=== PATIENT | female | born 1960 | race Caucasian/White ===

== ENCOUNTER 2019-08-07 00:29 | Inpatient (IN) | payer OTHER ==
[~2019-08-07] VITALS: Ht 170.2 cm; Wt 47.7 kg
[~2019-08-07 00:29] MED LIST: LEXAPRO5 MG PO
[2019-08-07 00:41] VITALS: Ht 170.2 cm; Wt 47.7 kg
[2019-08-07] MEDS ORDERED: NATURE'S BLEND F1 MG PO (01:06)
[2019-08-07] MEDS ORDERED: LYRICA50 M1 PO ×2 (01:06→01:07)
[2019-08-07 01:56] LABS: CALCIUM 9.6 mg/dL (8.5-10.1); CARBON DIOXIDE 29.4 mmol/L (21-32); CHLORIDE SERUM 101 mmol/L (98-107); CREATININE SERUM 0.9 mg/dL (0.6-1.0); GFR1 > 60 mL/min; GLUCOSE SERUM 95 mg/dL (74-106); POTASSIUM SERUM 4.1 mmol/L (3.5-5.1); SODIUM SERUM 141 mmol/L (136-145)
[2019-08-07 02:13] LABS: ALBUMIN 4.5 g/dL (3.4-5.0); ALKALINE PHOSPHATASE 69 U/L (46-116); ALT/SGPT 27 U/L (14-59); AST/SGOT 14 U/L (15-37); BILIRUBIN TOTAL 2.59 mg/dL (0.20-1.00); TOTAL PROTEIN, SERUM 7.7 g/dL (6.4-8.2)
[2019-08-07 02:14] LABS: CK-MB 0.7 ng/mL (0-3.6)
[2019-08-07 02:15] LABS: FREE T4 1.38 ng/dL (0.76-1.46)
[2019-08-07 02:37] LABS: BASOPHIL % 0.2 % (0-2); PLATELET COUNT 307 x10^3mcL (130-400); RED CELL DISTRIBUTION WIDTH 12.8 % (11.5-14.5)
[2019-08-07 02:40] LABS: AMPHETAMINE QUAL UR NONE DETECTED (See below)
[2019-08-07 02:49] LABS: microscopic required? YES; urine erythrocyte 2+ (NEGATIVE)
[2019-08-07 13:27] VITALS: BP 128/83
[2019-08-07 14:38] VITALS: BP 124/88
[2019-08-07 17:11] VITALS: BP 125/89
[2019-08-07 21:03] VITALS: BP 140/87
[2019-08-08 06:22] LABS: CALCIUM 9.2 mg/dL (8.5-10.1); CARBON DIOXIDE 26.4 mmol/L (21-32); CHLORIDE SERUM 100 mmol/L (98-107); GFR1 > 60 mL/min; GLUCOSE SERUM 112 mg/dL (74-106); MAGNESIUM 2.2 mg/dL (1.8-2.4); PHOSPHOROUS 3.3 mg/dL (2.5-4.9); POTASSIUM SERUM 3.8 mmol/L (3.5-5.1); SODIUM SERUM 139 mmol/L (136-145)
[2019-08-08 06:35] LABS: BASOPHIL % 0.3 % (0-2); PLATELET COUNT 291 x10^3mcL (130-400); RED CELL DISTRIBUTION WIDTH 12.7 % (11.5-14.5)
[2019-08-08 08:28] VITALS: BP 145/84
[2019-08-08 12:57] VITALS: BP 147/96
[2019-08-08 16:12] VITALS: BP 145/93
[2019-08-08 21:27] VITALS: BP 138/86
[2019-08-09 05:38] VITALS: BP 149/95
[2019-08-09 07:07] LABS: CALCIUM 8.8 mg/dL (8.5-10.1); CHLORIDE SERUM 103 mmol/L (98-107); CREATININE SERUM 0.9 mg/dL (0.6-1.0); GFR1 > 60 mL/min; GLUCOSE SERUM 102 mg/dL (74-106); MAGNESIUM 2.5 mg/dL (1.8-2.4); PHOSPHOROUS 2.6 mg/dL (2.5-4.9); POTASSIUM SERUM 3.2 mmol/L (3.5-5.1); SODIUM SERUM 140 mmol/L (136-145)
[2019-08-09 07:10] LABS: BASOPHIL % 0.2 % (0-2); PLATELET COUNT 266 x10^3mcL (130-400)
[2019-08-09 08:58] VITALS: BP 141/91
[2019-08-09 12:55] VITALS: BP 160/89
[2019-08-09 17:25] VITALS: BP 126/93
[2019-08-09 20:23] VITALS: BP 148/96
[2019-08-10 04:15] VITALS: BP 151/100
[2019-08-10 06:47] LABS: BASOPHIL % 0.4 % (0-2); PLATELET COUNT 239 x10^3mcL (130-400); RED CELL DISTRIBUTION WIDTH 13.5 % (11.5-14.5)
[2019-08-10 07:32] LABS: CALCIUM 8.9 mg/dL (8.5-10.1); CARBON DIOXIDE 25.3 mmol/L (21-32); CHLORIDE SERUM 107 mmol/L (98-107); CREATININE SERUM 0.9 mg/dL (0.6-1.0); GFR1 > 60 mL/min; GLUCOSE SERUM 90 mg/dL (74-106); MAGNESIUM 2.5 mg/dL (1.8-2.4); SODIUM SERUM 144 mmol/L (136-145)
[2019-08-10 07:34] LABS: POTASSIUM SERUM 2.9 mmol/L (3.5-5.1)
[2019-08-10 08:02] VITALS: BP 150/92
[2019-08-10 11:22] VITALS: BP 155/94
[2019-08-10 16:30] VITALS: BP 146/82
[2019-08-10 20:19] VITALS: BP 137/91
[2019-08-11 05:18] VITALS: BP 137/90
[2019-08-11 06:38] LABS: BASOPHIL % 0.4 % (0-2); PLATELET COUNT 278 x10^3mcL (130-400); RED CELL DISTRIBUTION WIDTH 12.9 % (11.5-14.5)
[2019-08-11 07:31] LABS: CARBON DIOXIDE 28.8 mmol/L (21-32); CHLORIDE SERUM 106 mmol/L (98-107); CREATININE SERUM 0.9 mg/dL (0.6-1.0); GFR1 > 60 mL/min; GLUCOSE SERUM 94 mg/dL (74-106); MAGNESIUM 2.2 mg/dL (1.8-2.4); PHOSPHOROUS 2.7 mg/dL (2.5-4.9); SODIUM SERUM 145 mmol/L (136-145)
[2019-08-11 08:20] VITALS: BP 145/89
[2019-08-11 12:11] VITALS: BP 139/97
[2019-08-11 16:28] VITALS: BP 133/94
[2019-08-11 20:46] VITALS: BP 139/83
[2019-08-12 06:02] VITALS: BP 111/82
[2019-08-12 06:42] LABS: BASOPHIL % 0.4 % (0-2); PLATELET COUNT 285 x10^3mcL (130-400); RED CELL DISTRIBUTION WIDTH 13.1 % (11.5-14.5)
[2019-08-12 07:01] LABS: CALCIUM 8.7 mg/dL (8.5-10.1); CARBON DIOXIDE 27.9 mmol/L (21-32); CHLORIDE SERUM 104 mmol/L (98-107); CREATININE SERUM 0.9 mg/dL (0.6-1.0); GFR1 > 60 mL/min; GLUCOSE SERUM 91 mg/dL (74-106); POTASSIUM SERUM 3.2 mmol/L (3.5-5.1); SODIUM SERUM 140 mmol/L (136-145)
[2019-08-12 07:27] VITALS: BP 123/80
[2019-08-12 11:09] VITALS: BP 134/86
[2019-08-12 15:58] VITALS: BP 144/94
[2019-08-12 20:35] VITALS: BP 116/85
[2019-08-13 05:20] VITALS: BP 137/89
[2019-08-13 06:21] LABS: BASOPHIL % 0.4 % (0-2); PLATELET COUNT 331 x10^3mcL (130-400); RED CELL DISTRIBUTION WIDTH 12.9 % (11.5-14.5)
[2019-08-13 06:44] LABS: CALCIUM 9.3 mg/dL (8.5-10.1); CARBON DIOXIDE 27.2 mmol/L (21-32); CHLORIDE SERUM 103 mmol/L (98-107); CREATININE SERUM 0.9 mg/dL (0.6-1.0); GFR1 > 60 mL/min; GLUCOSE SERUM 84 mg/dL (74-106); POTASSIUM SERUM 3.7 mmol/L (3.5-5.1); SODIUM SERUM 139 mmol/L (136-145)
[2019-08-13 09:03] VITALS: BP 111/80
[2019-08-13 16:58] VITALS: BP 110/77
[2019-08-13 20:57] VITALS: BP 129/92
[2019-08-14 06:02] VITALS: BP 123/83
[2019-08-14 06:34] LABS: BASOPHIL % 0.6 % (0-2); PLATELET COUNT 377 x10^3mcL (130-400); RED CELL DISTRIBUTION WIDTH 12.7 % (11.5-14.5)
[2019-08-14 06:58] LABS: CALCIUM 8.8 mg/dL (8.5-10.1); CARBON DIOXIDE 28.1 mmol/L (21-32); CHLORIDE SERUM 102 mmol/L (98-107); CREATININE SERUM 0.9 mg/dL (0.6-1.0); GFR1 > 60 mL/min; GLUCOSE SERUM 88 mg/dL (74-106); MAGNESIUM 2.4 mg/dL (1.8-2.4); POTASSIUM SERUM 3.8 mmol/L (3.5-5.1); SODIUM SERUM 139 mmol/L (136-145)
[2019-08-14 08:50] VITALS: BP 127/89
[2019-08-14 12:28] VITALS: BP 115/80
[2019-08-14 16:16] VITALS: BP 132/90
[2019-08-14 20:03] VITALS: BP 113/74
[2019-08-15 06:01] VITALS: BP 116/84
[2019-08-15 09:16] VITALS: BP 115/68
[2019-08-15] MEDS ORDERED: REMERON SOLTAB15 MG PO (11:50)
[2019-08-15 12:08] VITALS: BP 115/68
== END 2019-08-15 14:22 | DRG 917 ==
LOC: ED 00:29 → DU 05:31 → MU 08-12 16:50
PROVIDERS: Emergency Medicine; Internal Medicine; ADMIT Family Medicine
DX: T42.3X1A Poisoning by barbiturates, accidental (unintentional), initial encounter (principal); G92 Toxic encephalopathy; E87.6 Hypokalemia; F32.9 Major depressive disorder, single episode, unspecified; Z91.030 Bee allergy status; Z91.040 Latex allergy status; Z88.2 Allergy status to sulfonamides; Z88.8 Allergy status to other drugs, medicaments and biological substances; Z91.018 Allergy to other foods; Y92.89 Other specified places as the place of occurrence of the external cause
CPT/HCPCS: 36600; 82962; 84439; 86788; 86789; G0378; G0480; J2543; J3370; J3480; J7030; Q0092; Q9967; U0003-CS